=== PATIENT | male | born 1945 | race Caucasian/White ===

== ENCOUNTER → 2019-01-11 | Outpatient (REF) | payer MEDICARE, BC | LOC: M LAB LCGH 13:12 | PROVIDERS: ATTEND Family Medicine | DX: L82.1 Other seborrheic keratosis (principal) ==

== ENCOUNTER → 2020-04-22 | Outpatient (CLI) | payer MEDICARE, BC ==
[~2020-04-22] MED LIST: MELO15TA28 PO; PRAM1TAB7 PO; PREG100CA PO; SUMA100T2 PO
== END ==
LOC: M LAB 14:03
PROVIDERS: ATTEND Internal Medicine Gastroenterology
DX: R19.7 Diarrhea, unspecified (principal)

== ENCOUNTER → 2020-06-26 | Outpatient (CLI) | payer MEDICARE, BC | LOC: M LABSMTC 10:06 | PROVIDERS: ATTEND Anesthesiology | DX: Z01.812 Encounter for preprocedural laboratory examination (principal); Z20.828 Contact with and (suspected) exposure to other viral communicable diseases | CPT/HCPCS: C9803; U0003 ==

== ENCOUNTER 2020-07-01 08:19 | Day surgery (SDC) | payer MEDICARE, BC ==
[~2020-07-01] VITALS: Ht 177.8 cm; Wt 75.9 kg
[~2020-07-01 08:19] MED LIST changes: +LIDOCAINE 2% 100MG/5ML SDV (FOR ANES.) As Ordered ONE; +NS 1,000 ML IV ONE; +propofoL 200 MG/20 ML VIAL As Ordered ONE
[2020-07-01] MEDS ORDERED: fentaNYL 100 MCG/2 ML INJECTION (J3010) As Ordered ONE (10:01)
[2020-07-01] MEDS ORDERED: propofoL 200 MG/20 ML VIAL As Ordered ONE (10:02)
--- NOTE | 2020-07-01 10:10 | ROOR ---
Patient Name: Manuel Park Procedure Date: 07/01/2020 9:25 AM Date of : 1945 Age: 74 Room: [facility] Gender: Male Note Status: Finalized Procedure: Colonoscopy Indications: Clinically significant diarrhea of unexplained origin Providers: Karthikeyan CRUZ MD Referring MD: Bro Jurado DO Requesting Provider: Medicines: Monitored Anesthesia Care Complications: No immediate complications. Procedure: Pre-Anesthesia Assessment: - The heart rate, respiratory rate, oxygen saturations, blood pressure, adequacy of pulmonary ventilation, and response to care were monitored throughout the procedure. The Colonoscope was introduced through the anus and advanced to 10 cm into the ileum. The colonoscopy was performed without difficulty. The patient tolerated the procedure well. The quality of the bowel preparation was good. Findings: The perianal and digital rectal examinations were normal. A 10 mm polyp was found in the mid sigmoid colon. The polyp was semi-sessile. The polyp was removed with a piecemeal technique using a hot snare. Polyp resection was incomplete. The resected tissue was retrieved. Coagulation for destruction of remaining portion of lesion using argon beam at 0.8 liters/minute and 20 casanova was successful. Area was successfully injected with 2 mL Spot (carbon black) for tattooing. Multiple small and large-mouthed diverticula were found in the sigmoid colon and descending colon. Internal hemorrhoids were found during retroflexion. The hemorrhoids were medium-sized. Biopsies for histology were taken with a cold forceps for evaluation of microscopic colitis. Impression: - One 10 mm polyp in the mid sigmoid colon, removed piecemeal using a hot snare. Incomplete resection. Resected tissue retrieved. Treated with argon beam coagulation. Injected with tatoo for marking. - Diverticulosis in the sigmoid colon and in the descending colon. - Internal hemorrhoids. - The terminal ileum is normal. - Biopsies were taken with a cold forceps for evaluation of microscopic colitis. Recommendation: - Telephone endoscopist for pathology results in 2 weeks. - If the polyp pathology report reveals adenomatous tissue, then repeat the colonoscopy for surveillance after piecemeal polypectomy in 1 to 2 years. Karthikeyan Cruz MD Karthikeyan CRUZ MD 07/01/2020 10:10:13 AM Electronically signed by Karthikeyan CRUZ MD Number of Addenda: 0 Note Initiated On: 07/01/2020 9:25 AM Estimated Blood Loss: Estimated blood loss: none.
[2020-07-01 10:30] VITALS: BP 114/74
== END 2020-07-01 10:51 | disposition home or self-care (01) ==
LOC: M OPP 08:19
PROVIDERS: ATTEND Internal Medicine Gastroenterology
DX: D12.5 Benign neoplasm of sigmoid colon (principal); K57.30 Diverticulosis of large intestine without perforation or abscess without bleeding; K64.8 Other hemorrhoids; K63.89 Other specified diseases of intestine; R19.7 Diarrhea, unspecified; G60.9 Hereditary and idiopathic neuropathy, unspecified; G25.81 Restless legs syndrome; Z79.899 Other long term (current) drug therapy; Z86.14 Personal history of Methicillin resistant Staphylococcus aureus infection
CPT/HCPCS: 45380; 45381; 45385; 88305; J3010

== ENCOUNTER → 2021-09-21 | Outpatient (CLI) | payer MEDICARE, BC ==
[~2021-09-21] MED LIST changes: +FISH1000 PO; +GNP1000T11 PO; -LIDOCAINE 2% 100MG/5ML SDV (FOR ANES.) As Ordered ONE; -NS 1,000 ML IV ONE; +VITA-243 PO; +ZINC1TAB2 PO; +chondroitin PO; -propofoL 200 MG/20 ML VIAL As Ordered ONE
== END ==
LOC: M LABSMTC 12:13
PROVIDERS: ATTEND Anesthesiology
DX: Z01.812 Encounter for preprocedural laboratory examination (principal); Z20.822 Contact with and (suspected) exposure to COVID-19

== ENCOUNTER 2021-09-25 08:29 | Day surgery (SDC) | payer MEDICARE, BC ==
[~2021-09-25] VITALS: Ht 177.8 cm; Wt 83.6 kg
[~2021-09-25 08:29] MED LIST changes: +LIDOCAINE 2% 100MG/5ML SDV (FOR ANES.) As Ordered ONE; +NS 1,000 ML IV ONE; +propofoL 200 MG/20 ML VIAL As Ordered ONE
[2021-09-25] MEDS ORDERED: fentaNYL 100 MCG/2 ML INJECTION As Ordered ONE (09:40)
[2021-09-25] MEDS ORDERED: ELEVIEW SUBMUCOSAL INJ 10ML AMP As Ordered ONE (09:41)
[2021-09-25 10:20] VITALS: BP 109/57
== END 2021-09-25 11:05 | disposition home or self-care (01) ==
LOC: M OPP 08:29
PROVIDERS: ATTEND Internal Medicine Gastroenterology
DX: D12.6 Benign neoplasm of colon, unspecified (principal); K57.30 Diverticulosis of large intestine without perforation or abscess without bleeding; K64.8 Other hemorrhoids; Z98.890 Other specified postprocedural states; Z86.010 Personal history of colon polyps; Z79.899 Other long term (current) drug therapy; Z88.8 Allergy status to other drugs, medicaments and biological substances
CPT/HCPCS: 45381; 45385; 45388; 88305; J3010

== ENCOUNTER → 2022-11-18 | Outpatient (CLI) | payer MEDICARE, BC ==
[~2022-11-18] MED LIST changes: +B-12100010 PO; +DICL1GEL3 TOP; +FERR240T PO; +GALZ50CA PO; +GLUCTAB7 PO; +KP F1200 PO; -LIDOCAINE 2% 100MG/5ML SDV (FOR ANES.) As Ordered ONE; -NS 1,000 ML IV ONE; -propofoL 200 MG/20 ML VIAL As Ordered ONE
== END ==
LOC: M LABSMTC 10:55
PROVIDERS: ATTEND Anesthesiology
DX: Z01.812 Encounter for preprocedural laboratory examination (principal)

== ENCOUNTER 2022-11-23 08:18 | Day surgery (SDC) | payer MEDICARE, BC ==
[~2022-11-23] VITALS: Ht 175.3 cm; Wt 79.7 kg
[~2022-11-23 08:18] MED LIST changes: +NS 1,000 ML IV ONE
[2022-11-23] MEDS ORDERED: fentaNYL 100 MCG/2 ML INJECTION As Ordered ONE (10:21)
[2022-11-23 11:00] VITALS: BP 116/60
== END 2022-11-23 11:10 | disposition home or self-care (01) ==
LOC: M OPP 08:18
PROVIDERS: ATTEND Internal Medicine Gastroenterology
DX: Z12.11 Encounter for screening for malignant neoplasm of colon (principal); Z86.010 Personal history of colon polyps; D12.0 Benign neoplasm of cecum; G43.909 Migraine, unspecified, not intractable, without status migrainosus; G25.81 Restless legs syndrome; F17.290 Nicotine dependence, other tobacco product, uncomplicated; Z79.1 Long term (current) use of non-steroidal anti-inflammatories (NSAID); Z79.899 Other long term (current) drug therapy; Z87.19 Personal history of other diseases of the digestive system
CPT/HCPCS: 45385; 88305; J3010

== ENCOUNTER 2024-09-03 08:06 | Day surgery (SDC) | payer MEDICARE ==
[~2024-09-03] VITALS: Ht 177.8 cm; Wt 71.7 kg
[~2024-09-03 08:06] MED LIST changes: +BUDE3CAP PO; +D3 H2000 PO; +DICL100G10 TOP; -DICL1GEL3 TOP; +DONE10TA90 PO; +FISH100042 PO; +MAGN400C PO; -NS 1,000 ML IV ONE; +SILD100T PO; +TURM500C PO
[2024-09-03] MEDS ORDERED: dexmedeTOMIDine (4MCG/ML)200MCG/50ML BTL (PRECEDEX) As Ordered ONE (10:38)
[2024-09-03] MEDS ORDERED: propofoL 200 MG/20 ML VIAL As Ordered ONE (10:38)
[2024-09-03] MEDS ORDERED: LIDOCAINE 2% 100MG/5ML SDV (FOR ANES.) As Ordered ONE (10:39)
[2024-09-03] MEDS ORDERED: PHENYLephrine 500MCG 5ML (100MCG/ML) SYRINGE As Ordered ONE (11:05)
[2024-09-03 11:40] VITALS: BP 123/67; O2SAT 95
== END 2024-09-03 12:00 | disposition home or self-care (01) ==
LOC: M OPP 08:06
PROVIDERS: ATTEND Internal Medicine Gastroenterology
DX: R63.4 Abnormal weight loss (principal); K57.30 Diverticulosis of large intestine without perforation or abscess without bleeding; K52.9 Noninfective gastroenteritis and colitis, unspecified; K44.9 Diaphragmatic hernia without obstruction or gangrene; Z79.899 Other long term (current) drug therapy; F17.290 Nicotine dependence, other tobacco product, uncomplicated
CPT/HCPCS: 43235; 45380; 87507; 88305; J2371